=== PATIENT | male | born 1990 | race Caucasian/White ===

== ENCOUNTER 2017-05-07 01:46 | Emergency (ER) | payer SELFPAY ==
[2017-05-07] MEDS ORDERED: ACETAMINOPHEN 325 MG TABLET PO ONE (02:23)
[2017-05-07] MEDS ORDERED: HYDROMORPHONE HCL INJ/PF 2 MG/ML AMPULE IM ONE (03:47)
--- NOTE | 2017-05-07 04:01 | ER Document Report ---
ED General - General Chief Complaint: Low Back Pain Stated Complaint: LEFT LEG AND BACK PAIN Time Seen by Provider: 05/07/17 03:37 Notes: Patient is a 27-year-old male presents with complaint of pain and numbness into his left leg coming from his left back. He said the numbness goes to just above his left knee. It does not extend to the rest of his foot. No loss of bowel control. No urinary retention. No weakness into his feet. Patient has a history of a back surgery of his low back when he was 24. This was performed at [facility]. Fevers. No infections. He says he for stenosing pain when he tried to lift something heavy a few days ago. Then he had his girlfriend walk on his back. Pain is been worse since the numbness has developed. TRAVEL OUTSIDE OF THE [place] IN LAST 30 DAYS: No COUNTRY TRAVELED TO/FROM: [facility] - Related Data Allergies/Adverse Reactions: No Known Allergies Allergy (Unverified 05/07/17 02:34) Past Medical History - Social History Smoking Status: Never Smoker Frequency of alcohol use: None Drug Abuse: None Family History: Reviewed & Not Pertinent - Past Medical History Cardiac Medical History: Reports: Hx Hypertension Denies: Hx Coronary Artery Disease, Hx Heart Attack Pulmonary Medical History: Denies: Hx Asthma, Hx Bronchitis, Hx COPD, Hx Pneumonia Neurological Medical History: Denies: Hx Cerebrovascular Accident, Hx Seizures Endocrine Medical History: Denies: Hx Diabetes Mellitus Type 1, Hx Diabetes Mellitus Type 2 Musculoskeltal Medical History: Reports Hx Arthritis Psychiatric Medical History: Reports: Hx Attention Deficit Hyperactivity Disorder, Hx Depression, Hx Schizophrenia Past Surgical History: Reports: Hx Orthopedic Surgery - back. Denies: Hx Pacemaker - Immunizations Hx Diphtheria, Pertussis, Tetanus Vaccination: Yes Review of Systems - Review of Systems Notes: My Normal Review Basic REVIEW OF SYSTEMS: CONSTITUTIONAL : Denies fever, chills, or sweats. Denies recent illness. EENT: Denies eye, ear, throat, or mouth pain or symptoms. Denies nasal or sinus congestion. GASTROINTESTINAL: Denies abdominal pain. Denies nausea, vomiting, or diarrhea. GENITOURINARY: Denies difficulty urinating, painful urination, burning, frequency, or blood in urine. MUSCULOSKELETAL: Back pain SKIN: Denies rash or skin lesions. HEMATOLOGIC : Denies easy bruising or bleeding. LYMPHATIC: Denies swollen, enlarged glands. NEUROLOGICAL: Denies altered mental status or loss of consciousness. Denies headache. Denies weakness or paralysis or loss of use of either side. Denies problems with gait or speech. Numbness in left thigh. ALL OTHER SYSTEMS REVIEWED AND NEGATIVE. Physical Exam - Vital signs Vitals: Temp Pulse Resp BP Pulse Ox 98.2 F 88 20 146/90 H 98 05/07/17 01:53 05/07/17 01:53 05/07/17 01:53 05/07/17 01:53 05/07/17 01:53 - Notes Notes: General Appearance: Well nourished, alert, cooperative, no acute distress, mild obvious discomfort. Vitals: reviewed, See vital signs table. Eyes: PERRL, EOMI, Conjuctiva clear Back: Some midline lumbar spine tenderness to palpation. No stepoffs or deformities. Extremities: strength 5/5 in all extremities, good pulses in all extremities, no swelling or tenderness in the extremities, no edema. Skin: warm, dry, appropriate color, no rash Neuro: speech clear, oriented x 3, normal affect, responds appropriately to questions. Good strength with plantar dorsiflexion against resistance. Normal patella and Achilles reflexes. Good distal sensation left lower extremity. Mild pain with leg raise. Course - Re-evaluation Re-evalutation: 05/07/17 07:08 CT scans results recommends MRI. I do not suspect the patient is cauda equina syndrome however we will continue with MRI. Patient will be given results of his MRI and most likely will be able to follow-up with his previous back surgeon. There are MRI shows anything to think acutely surgical we will contact the appropriate consultants. Dictation of this chart was performed using voice recognition software; therefore, there may be some unintended grammatical errors. - Vital Signs Vital signs: Temp Pulse Resp BP Pulse Ox 98.2 F 88 20 146/90 H 98 05/07/17 01:53 05/07/17 01:53 05/07/17 01:53 05/07/17 01:53 05/07/17 01:53 Discharge - Discharge Clinical Impression: Back pain Qualifiers: Back pain location: low back pain Chronicity: chronic Back pain laterality: left Sciatica presence: with sciatica Sciatica laterality: sciatica of left side Qualified Code(s): M54.42 - Lumbago with sciatica, left side Condition: Good Additional Instructions: PLease take your MRI results to [facility] [place] to see your doctor. PLease follow up with them for further treatment options. PLease return to the ER if you have loss of bowel control, urinary retention, increasing leg weakness, or if you have further concerns. Please avoid lifting heavy objects. Prescriptions: Prednisone 10 mg PO ASDIR #42 tablet Forms: Return to Work
--- NOTE | 2017-05-07 04:37 | RADIOLOGY REPORT (SQ) ---
EXAM DESCRIPTION: CT LUMBAR SPINE WITHOUT CLINICAL HISTORY: back pain. COMPARISON: None available TECHNIQUE: Axial CT of the lumbar spine obtained without contrast. FINDINGS: Alignment of the lumbar spine is maintained without evidence of subluxation. No fracture identified. Vertebral body height preserved. Prevertebral soft tissues are unremarkable. Intervertebral disc height preserved at L1/2, L2/3, and L3/4 without significant abnormality. L4/5: Mild loss of disc height with broad-based central disc protrusion which likely effaces the thecal sac. No definite neural foraminal narrowing. L5/S1: Minimal broad-based posterior disc bulge. Mild loss of disc height. No abnormalities of the visualized abdominal soft tissues. No fracture of the visualized ribs. DLP: 1245.53 mGy-cm IMPRESSION: 1. No acute fracture or subluxation of the lumbar spine. 2. Degenerative change of the lumbar spine, most severe at L4/5 where there appears to be a broad-based central disc protrusion. Correlation with MRI would be helpful for more definitive characterization This exam was performed according to our departmental dose-optimization program, which includes automated exposure control, adjustment of the mA and/or kV according to patient size and/or use of iterative reconstruction technique.
--- NOTE | 2017-05-07 09:38 | RADIOLOGY REPORT (SQ) ---
EXAM DESCRIPTION: MRI LUMBAR SPINE WITHOUT COMPLETED DATE/TIME: 05/07/2017 9:23 am REASON FOR STUDY: back pain, findings on CT scan COMPARISON: CT of the lumbar spine dated 05/07/2017 TECHNIQUE: Sagittal and Axial imaging includes T1, T2, STIR and gradient echo sequences. Coronal T2/ HASTE imaging. LIMITATIONS: None. FINDINGS: VISUALIZED UPPER ABDOMEN: Limited evaluation. No acute or suspicious findings suggested. SEGMENTATION: No transitional anatomy. The lowest well-developed disc space is labeled L5-S1. ALIGNMENT: Anatomic. VERTEBRAE: Intact. BONE MARROW: Normal. No marrow replacement or reactive changes. DISC SIGNAL: There is some decrease in each of the lumbar disc space heights with some loss of the no rmal signal intensity at the L4-L5 level consistent with disc degeneration. POSTERIOR ELEMENTS: Generally intact. No pars defect evident. HARDWARE: None in the spine. CORD AND CONUS: Normal in size and signal intensity. Conus at the appropriate level. SOFT TISSUES: No aortic aneurysm seen. No bulky retroperitoneal adenopathy or mass. No paraspinal mas s or fluid. L1-L2: No significant spinal stenosis or exit foraminal stenosis. L2-L3: No significant spinal stenosis or exit foraminal stenosis. L3-L4: There is a central broad-based disc protrusion with impingement on the anterior thecal sac in conjunction with posterior ligamentous hypertrophy and for set arthropathy there is severe spinal darvin nosis without significant exit foraminal stenosis. L4-L5: Disc bulging is identified with a central convex component consistent with a broad base disc p rotrusion. There is impingement on the anterior thecal sac and in conjunction with posterior ligamen tous hypertrophy and for set arthropathy there is moderate spinal stenosis without significant exit f oraminal stenosis. L5-S1: No significant spinal stenosis or exit foraminal stenosis. LOWER THORACIC: Incompletely imaged. No stenosis seen. SACRUM: Visualized upper sacrum intact. OTHER: No other significant findings. IMPRESSION: Disc protrusions are identified at the L3-L4 and L4-L5 disc space levels as noted above. Other findings as noted above TECHNICAL DOCUMENTATION: JOB ID: [id number] [employer]- All Rights Reserved
[2017-05-07 11:24] VITALS: BP 154/85
== END 2017-05-07 11:24 ==
LOC: ER 01:46
DX: M54.42 Lumbago with sciatica, left side (principal); M79.605 Pain in left leg; M54.5 Low back pain; M54.9 Dorsalgia, unspecified; R20.0 Anesthesia of skin
CPT/HCPCS: 99283; 96372; 72148; 72131; J1170

== ENCOUNTER 2017-05-24 02:57 | Emergency (ER) | payer SELFPAY ==
[2017-05-24 03:02] VITALS: BP 143/86
[2017-05-24] MEDS ORDERED: DEXAMETHASONE SOD PHOS INJ 10 MG/1 ML VIAL IM ONE (04:08)
[2017-05-24] MEDS ORDERED: MORPHINE SULFATE 10 MG/ML INJ IM ONE (04:09)
--- NOTE | 2017-05-24 04:15 | ER Document Report ---
HPI - HPI Patient complains to provider of: Lower back pain, leg pain Pain Level: 5 Context: Patient is a 27-year-old male that comes emergency department for chief complaint of lower back pain extending around to the back of his right leg. He states that he was seen about 2 weeks ago, had similar symptoms in his left leg , states that he was treated with prednisone and he did have resolution of symptoms, states he also had an MRI which showed bulging disks in his lumbar spine. He states he had back surgery when he was 24 years old after an injury, states he was taking bupenorphrine but he had no improvement. He denies numbness , incontinence, fever, IV drug abuse. Past Medical History - General Information source: Patient - Social History Smoking Status: Never Smoker Frequency of alcohol use: None Drug Abuse: None Lives with: Family Family History: Reviewed & Not Pertinent - Past Medical History Cardiac Medical History: Reports: Hx Hypertension Denies: Hx Coronary Artery Disease, Hx Heart Attack Pulmonary Medical History: Denies: Hx Asthma, Hx Bronchitis, Hx COPD, Hx Pneumonia Neurological Medical History: Denies: Hx Cerebrovascular Accident, Hx Seizures Endocrine Medical History: Denies: Hx Diabetes Mellitus Type 1, Hx Diabetes Mellitus Type 2 Renal/ Medical History: Denies: Hx Peritoneal Dialysis Musculoskeltal Medical History: Reports Hx Arthritis Psychiatric Medical History: Reports: Hx Attention Deficit Hyperactivity Disorder, Hx Depression, Hx Schizophrenia Past Surgical History: Reports: Hx Orthopedic Surgery - back. Denies: Hx Pacemaker - Immunizations Hx Diphtheria, Pertussis, Tetanus Vaccination: Yes Vertical Provider Document - CONSTITUTIONAL General Appearance: Mild Distress - patient appears uncomfortable - INFECTION CONTROL TRAVEL OUTSIDE OF THE [place] IN LAST 30 DAYS: No COUNTRY TRAVELED TO/FROM: [facility] - [facility] HEENT: Atraumatic, Normocephalic - NECK Neck: Normal Inspection - RESPIRATORY Respiratory: Breath Sounds Normal, No Respiratory Distress O2 Sat by Pulse Oximetry: 98 - CARDIOVASCULAR Cardiovascular: Regular Rate, Regular Rhythm - GI/ABDOMEN Gastrointestinal: Abdomen Soft, Abdomen Non-Tender - BACK Back: negative: Normal Inspection - Patient has tenderness in the right paraspinal muscles extending towards the gluteus. No midline tenderness. No saddle anesthesia. Full range of motion of upper and lower extremities, positive straight leg raise on the left side, patient ambulates with a slight limp. Normal distal neurovascular exam. - NEURO Level of Consciousness: Awake, Alert, Appropriate Motor/Sensory: No Motor Deficit, No Sensory Deficit - DERM Integumentary: Warm, Dry, No Rash Course - Re-evaluation Re-evalutation: Patient states he is waiting in the local office of the [facility]. Patient is very forthcoming about his history and medications. He states that he declined pain medicine last time but he is requesting some this time. He does appear uncomfortable and walks with a limp although he has no concerning deficits or red flag symptoms. MRI reviewed and found to be what patient described. Patient provided with medication here and for home, referred to pain management, provided with copies of his reports, patient states gratefulness. - Vital Signs Vital signs: Temp Pulse Resp BP Pulse Ox 97.8 F 98 18 143/86 H 98 05/24/17 02:58 05/24/17 02:58 05/24/17 02:58 05/24/17 02:58 05/24/17 02:58 Discharge - Discharge Clinical Impression: Lower back pain Qualifiers: Chronicity: acute Back pain laterality: right Sciatica presence: with sciatica Sciatica laterality: sciatica of right side Qualified Code(s): M54.41 - Lumbago with sciatica, right side Condition: Stable Disposition: HOME, SELF-CARE Instructions: Oral Narcotic Medication ([facility]) Additional Instructions: Please follow-up with your spinal surgeon as planned. Take your MRI disc and report with you. Take prescribed medications, apply heat to your lower back, avoid lifting/ twisting especially until symptoms resolve. Consider following up with the pain management referral because of your chronic pain. Return the emergency department for any concerning or worsening symptoms including numbness, loss of bladder or bowel control, fever, or any other concerning symptoms. Prescriptions: Acetaminophen with Codeine [Tylenol #3 Tablet] 1 each PO Q6HP PRN #40 tablet PRN Reason: Forms: Return to Work Referrals: [facility] [Provider Group] - Follow up as needed
== END 2017-05-24 04:42 | disposition home or self-care (01) ==
LOC: ER 02:57
DX: M51.16 Intervertebral disc disorders with radiculopathy, lumbar region (principal); I10 Essential (primary) hypertension; Z87.828 Personal history of other (healed) physical injury and trauma; Z98.890 Other specified postprocedural states
CPT/HCPCS: 99283; 96372; J2270; J1100

== ENCOUNTER 2017-08-24 18:54 | Emergency (ER) | payer SELFPAY ==
[2017-08-24] MEDS ORDERED: ONDANSETRON HCL INJ/PF 4 MG/2 ML SDV IV ONE (19:33)
[2017-08-24] MEDS ORDERED: NORMAL SALINE 1000 ML 1,000 ML IV ONE ×2 (19:33→20:16)
--- NOTE | 2017-08-24 19:36 | ER Document Report ---
HPI - HPI Patient complains to provider of: Flu symptoms Onset: Yesterday Onset/Duration: Gradual Quality of pain: Achy Pain Level: 3 Context: Patient presents complaining of flulike symptoms. Patient complains of intermittent sweats and chills and feeling generalized weakness. Patient does complain of some nausea. Patient denies any fever or cough. Patient denies any vomiting or diarrhea. Patient does report recent sick contacts. Patient states he had an episode of muscle cramping to the right pectoralis muscle and right thigh this afternoon. Patient denies any chest pain or dyspnea. Associated Symptoms: Body/muscle aches, Chills, Nausea. denies: Nonproductive cough, Productive cough, Diarrhea, Fever, Vomiting, Shortness of breath Exacerbated by: Denies Relieved by: Denies Similar symptoms previously: No Recently seen / treated by doctor: No - ROS ROS below otherwise negative: Yes Systems Reviewed and Negative: Yes All other systems reviewed and negative - CONSTITUTIONAL Constitutional: REPORTS: Chills. DENIES: Fever - NEURO Neurology: REPORTS: Weakness. DENIES: Headache - RESPIRATORY Respiratory: DENIES: Trouble Breathing, Coughing - GASTROINTESTINAL Gastrointestinal: REPORTS: Nausea. DENIES: Abdominal Pain, Patient vomiting, Diarrhea - MUSCULOSKELETAL Musculoskeletal: DENIES: Back Pain, Neck Pain - DERM Skin Color: Normal <ROSSANA DOS SANTOS - Last Filed: 08/25/17 09:24> Past Medical History - General Information source: Patient - Social History Smoking Status: Current Every Day Smoker Frequency of alcohol use: None Drug Abuse: None Occupation: cement worker Lives with: Family Family History: Reviewed & Not Pertinent - Past Medical History Cardiac Medical History: Reports: Hx Hypertension Denies: Hx Coronary Artery Disease, Hx Heart Attack Pulmonary Medical History: Denies: Hx Asthma, Hx Bronchitis, Hx COPD, Hx Pneumonia Neurological Medical History: Denies: Hx Cerebrovascular Accident, Hx Seizures Endocrine Medical History: Denies: Hx Diabetes Mellitus Type 1, Hx Diabetes Mellitus Type 2 Renal/ Medical History: Denies: Hx Peritoneal Dialysis Musculoskeltal Medical History: Reports Hx Arthritis Psychiatric Medical History: Reports: Hx Attention Deficit Hyperactivity Disorder, Hx Depression, Hx Schizophrenia Past Surgical History: Reports: Hx Orthopedic Surgery - back. Denies: Hx Pacemaker - Immunizations Hx Diphtheria, Pertussis, Tetanus Vaccination: Yes <ROSSANA DOS SANTOS - Last Filed: 08/25/17 09:24> Vertical Provider Document - CONSTITUTIONAL Agree With Documented VS: Yes Exam Limitations: No Limitations General Appearance: No Apparent Distress - INFECTION CONTROL TRAVEL OUTSIDE OF THE [place] IN LAST 30 DAYS: No COUNTRY TRAVELED TO/FROM: [place] - HEENT HEENT: Atraumatic, Normal ENT Exam, Normocephalic - NECK Neck: Normal Inspection, Supple. negative: Lymphadenopathy-Left, Lymphadenopathy-Right - RESPIRATORY Respiratory: Breath Sounds Normal, No Respiratory Distress, Chest Non-Tender O2 Sat by Pulse Oximetry: 96 - CARDIOVASCULAR Cardiovascular: Regular Rhythm, No Murmur, Tachycardia - GI/ABDOMEN Gastrointestinal: Abdomen Soft, Abdomen Non-Tender, No Organomegaly, Normal Bowel Sounds - BACK Back: Normal Inspection. negative: CVA Tenderness-Right, CVA Tenderness-Left - MUSCULOSKELETAL/EXTREMETIES Musculoskeletal/Extremeties: KATI ROE - NEURO Level of Consciousness: Awake, Alert, Appropriate Motor/Sensory: No Motor Deficit - DERM Integumentary: Warm - Patient diaphoretic <ROSSANA DOS SANTOS - Last Filed: 08/25/17 09:24> Course - Re-evaluation Re-evalutation: 08/24/17 22:16 Discussed labs with patient and written report of labs given to patient. Patient states he is feeling much better. He denies nausea, abdominal pain, sweating, or dizziness. He states he was able to drink the whole Gatorade with no difficulty. He states he has been up to the bathroom several times. He was given a prescription for antinausea medicine instructed to follow-up with his primary doctor tomorrow. Patient verbalized understanding of these instructions. - Vital Signs Vital signs: Temp Pulse Resp BP Pulse Ox 98.0 F 90 17 144/89 H 97 08/24/17 21:50 08/24/17 21:50 08/24/17 21:50 08/24/17 21:50 08/24/17 21:50 - Laboratory Result Diagrams: 08/24/17 20:13 08/24/17 20:13 Laboratory results interpreted by me: 08/24/17 08/24/17 08/24/17 19:50 20:13 20:13 WBC 15.5 H RBC 5.58 H Absolute Neutrophils 11.3 H Absolute Monocytes 1.6 H Calcium 10.9 H Direct Bilirubin 0.5 H Total Protein 8.3 H Urine Protein 100 H Urine Ketones TRACE H Urine Bilirubin MODERATE H Urine Urobilinogen 4.0 H Urine Ascorbic Acid 40 H <FELICIA SEBASTIAN - Last Filed: 08/24/17 22:11> - Re-evaluation Re-evalutation: 08/24/17 19:[address] Paulson guarding patient's diagnostic evaluation. Agrees with plan to order basic labs and advises adding on the magnesium as well. 08/24/17 20:41 Report and handoff given to Mala Sebastian PIPELINE OPERATOR - Vital Signs Vital signs: Temp Pulse Resp BP Pulse Ox 98.5 F 122 H 20 154/88 H 96 08/24/17 19:09 08/24/17 19:09 08/24/17 19:09 08/24/17 19:09 08/24/17 19:09 - Laboratory Result Diagrams: 08/24/17 20:13 08/24/17 20:13 <ROSSANA DOS SANTOS - Last Filed: 08/25/17 09:24> Discharge <FELICIA SEBASTIAN - Last Filed: 08/24/17 22:11> <ROSSANA DOS SANTOS - Last Filed: 08/25/17 09:24> - Discharge Clinical Impression: Flu-like symptoms, Dehydration Condition: Stable Disposition: HOME, SELF-CARE Additional Instructions: Viral Syndrome The physician has diagnosed a viral infection. Viruses not only cause "colds," but can cause many different symptoms including generalized aching, fever, headache, cough, diarrhea, nausea, vomiting, and fatigue. The treatment, for the most part, is simply relief of symptoms. This means that antibiotics are usually not given. Rest, fluids, pain medications and, occasionally, medication for the specific symptoms that are most bothersome will be prescribed. Use good handwashing to avoid passing the virus to others. Shared toys should be cleaned with disinfectant. Clean the toilets, sinks, and counter surfaces in bathrooms. Launder clothing in hot water. Contact the physician if you develop any new or unusual symptoms such as severe headache, stiff neck, high fever, chest pain, productive cough, or shortness of breath. You should be rechecked if you don't see marked improvement within seven to 10 days. Dehydration Dehydration can result from vomiting or diarrhea, fever, or decreased intake of fluids. If severe, hospitalization and intravenous fluids may be required. Most cases are treated at home with fluids by mouth. For the next 24 hours, drink lots of clear fluids. In mild cases, this can be soda pop or sports drinks. For more severe dehydration, the doctor may recommend special fluids such as Pedialyte or Lytren. Try to get three liters ( 3 quarts) of fluid per day. If vomiting occurs, continue to drink the fluids frequently (every 15 to 20 minutes), but in small amounts (one or two ounces). Depending on the type of dehydration, the doctor may prescribe antinausea medicine or potassium replacements. Call the doctor or return for re-examination if you become progressively weak, vomit repeatedly, or have other new symptoms. Nausea or Vomiting, Nonspecific Vomiting (or nausea without vomiting) can be caused by many different problems. Of course, it can mean that something's wrong with the stomach, such as "stomach flu," ulcers, or inflammation. But it can also be a symptom of a problem that has nothing to do with the stomach or intestines. Vomiting is common with severe headaches, earaches, and tonsillitis. We see it with pneumonia or heart attacks. Drugs can cause nausea. Many abdominal problems cause vomiting; for example, gallstones, kidney stones, pancreatitis, and intestinal obstruction (blocked bowels). In most cases, curing the vomiting depends on fixing the problem that caused it. For temporary relief, we may use an anti-nausea medicine. For home use, we can prescribe suppositories, chewable pills, pills that dissolve in the mouth, or liquid anti-nausea drugs. If the vomiting seems to be caused by a problem in the stomach, acid-suppressing drugs may be prescribed as well. It's important to avoid dehydration. Sip clear liquids. Take increasing amounts of fluid over the first 24 hours. Then start small amounts of bland foods (such as dry toast, applesauce, mashed potato). Avoid aspirin, tobacco, and alcohol. Gradually resume your usual diet. If the vomiting worsens, if the problem that's making you vomit worsens, or if there's evidence of bleeding in the stomach (such as black, tarry stool, bloody or black vomit, or lightheadedness), you should return immediately. Call your doctor if you aren't improved in 24 to 36 hours. Antinausea Medication You have been given a medication to suppress nausea and vomiting. This type of medication can be given as a shot, pill, or suppository. It will usually last for many hours. Pills and shots usually last six to eight hours, suppositories last about 12 hours. For the typical illness, only one or two doses of the medication may be necessary. Mild lightheadedness may occur. This type of medicine can cause drowsiness. Do not drive or operate dangerous machinery while under its influence. Do not mix with alcohol. See your doctor at once if you have muscle spasms or tightness, or uncontrollable motions (particularly of the neck, mouth, or jaw). Persistent vomiting or severe lightheadedness should also be evaluated by the physician. Intravenous (IV) Fluids As part of your care today, you received intravenous (IV) fluids. IV fluids are administered to patients who are dehydrated or to those who have certain chemical (electrolyte) abnormalities that need correcting. FOLLOW-UP CARE: If you have been referred to a physician for follow-up care, call the physician s office for an appointment as you were instructed or within the next two days. If you experience worsening or a significant change in your symptoms, notify the physician immediately or return to the Emergency Department at any time for re-evaluation. Prescriptions: Ondansetron [Zofran Odt 4 mg Tablet] 1 tab PO Q6H #15 tab.rapdis Forms: Elevated Blood Pressure, Smoking Cessation Education, Return to Work Referrals: CULLEN VALERIO MD [Primary Care Provider] - Follow up tomorrow
[2017-08-24 20:09] LABS: APPEARANCE,URINE SLIGHTLY-CLOUDY; BILIRUBIN,URINE MODERATE (NEGATIVE); CALCIUM OXALATE CRYSTALS,URINE RARE /HPF; COLOR,URINE AMBER; GLUCOSE, URINE NEGATIVE (NEGATIVE); KETONES,URINE TRACE mg/dL (NEGATIVE); LEUKOCYTE ESTERASE,URINE NEGATIVE (NEGATIVE); NITRITE,URINE NEGATIVE (NEGATIVE); PROTEIN,URINE 100 mg/dL (NEGATIVE); URINE SPECIFIC GRAVITY 1.059
[2017-08-24 20:31] LABS: ABSOLUTE BASOPHILS # (AUTO) 0.1 10^3/uL (0.0-0.2); ABSOLUTE EOSINOPHILS # (AUTO) 0.2 10^3/uL (0.0-0.6); ABSOLUTE LYMPHOCYTES (AUTO) 2.3 10^3/uL (0.5-4.7); ABSOLUTE MONOCYTES (AUTO) 1.6 10^3/uL (0.1-1.4); ABSOLUTE NEUT (AUTO) 11.3 10^3/uL (1.7-8.2); BASOPHILS % (AUTO) 0.7 % (0-2); HEMATOCRIT 47.9 % (37.9-51.0); HEMOGLOBIN 16.2 g/dL (13.5-17.0); LYMPHOCYTES % (AUTO) 14.8 % (13-45); MEAN CORPUSCULAR HEMOGLOBIN 29.1 pg (27.0-33.4); MEAN CORPUSCULAR HGB CONC 33.9 g/dL (32.0-36.0); MEAN CORPUSCULAR VOLUME 86 fl (80-97); MONOCYTES % (AUTO) 10.2 % (3-13); PLATELET COUNT 334 10^3/uL (150-450); RED BLOOD COUNT 5.58 10^6/uL (4.35-5.55); RED CELL DISTRIBUTION WIDTH 12.8 % (11.5-14.0); SEGMENTED NEUTROPHILS % (AUTO) 73.3 % (42-78); TOTAL CELLS COUNTED % (AUTO) 100 %; WHITE BLOOD COUNT 15.5 10^3/uL (4.0-10.5)
[2017-08-24 20:51] LABS: ALANINE AMINOTRANSFERASE 61 U/L (21-72); ALBUMIN 4.6 g/dL (3.5-5.0); ALKALINE PHOSPHATASE 106 U/L (38-126); ANION GAP 14 (5-19); ASPARTATE AMINO TRANSFERASE 36 U/L (17-59); BILIRUBIN,DIRECT 0.5 mg/dL (0.0-0.4); BILIRUBIN,TOTAL 0.6 mg/dL (0.2-1.3); BLOOD UREA NITROGEN 15 mg/dL (7-20); CALCIUM 10.9 mg/dL (8.4-10.2); CARBON DIOXIDE 27 mmol/L (22-30); CHLORIDE 102 mmol/L (98-107); CREATINE KINASE 129 U/L (55-170); GLUCOSE 97 mg/dL (75-110); POTASSIUM 4.5 mmol/L (3.6-5.0); SODIUM 142.8 mmol/L (137-145); TOTAL PROTEIN 8.3 g/dL (6.3-8.2)
[2017-08-24 21:52] VITALS: BP 144/89
--- NOTE | 2017-08-24 22:13 | EKG REPORT ---
SEVERITY:- OTHERWISE NORMAL ECG - SINUS TACHYCARDIA : Confirmed by: Jamie Steve 24-Aug-2017 22:13:09
== END 2017-08-24 22:15 | disposition home or self-care (01) ==
LOC: ER 18:54
DX: E86.0 Dehydration (principal); R61 Generalized hyperhidrosis; F17.200 Nicotine dependence, unspecified, uncomplicated; I10 Essential (primary) hypertension
CPT/HCPCS: 93005; 99284; 96361; 96374; 36415; 82550; 83735; 84443; 85025; 80053; 81001; 93010; J2405; J7030

== ENCOUNTER 2017-09-08 18:05 | Emergency (ER) | payer SELFPAY ==
[2017-09-08] MEDS ORDERED: DEXAMETHASONE SOD PHOS INJ 10 MG/1 ML VIAL IM ONE (19:02)
[2017-09-08] MEDS ORDERED: KETOROLAC TROMETHAMINE INJ/PF 30 MG/1 ML SDV IM ONE (19:02)
--- NOTE | 2017-09-08 19:03 | ER Document Report ---
HPI - HPI Pain Level: 5 Notes: Patient is a 27-year-old male with a history of hypertension who presents to the ED complaining of acute on chronic left leg tingling with continued low back pain. Patient states that since he started his new job he has been leaning over the sink and has had increased pain to his lower back and increased tingling into his left leg down to his knee. Patient has not been being seen by anybody for his chronic issues. Patient states that he has had surgery to his back in the past with an MRI that showed bulging disks as well. Patient states that he is eating and drinking without difficulties. He is urinating normally and having normal bowel movements. Patient does admit to smoking but denies IV drug use. Denies any previous history of spinal abscess or other immunocompromised conditions. Patient states that he is ambulatory without any discomfort as well. Flexion makes his pain worse. No other concerns or complaints at this time. Denies any headache, fever, neck pain, URI , sore throat, chest pain, palpitations, syncope, cough, shortness of breath, wheeze, dyspnea, abdominal pain, nausea/vomiting/diarrhea, urinary retention, dysuria, hematuria, loss of control of bowel or bladder, numbness/tingling, saddle anesthesia, muscle paralysis/weakness, or rash. - ROS Systems Reviewed and Negative: Yes All other systems reviewed and negative - MUSCULOSKELETAL Musculoskeletal: REPORTS: Extremity pain Past Medical History - Social History Smoking Status: Current Every Day Smoker Chew tobacco use (# tins/day): No Frequency of alcohol use: None Drug Abuse: None Family History: Reviewed & Not Pertinent Patient has suicidal ideation: No Patient has homicidal ideation: No - Past Medical History Cardiac Medical History: Reports: Hx Hypertension Denies: Hx Coronary Artery Disease, Hx Heart Attack Pulmonary Medical History: Denies: Hx Asthma, Hx Bronchitis, Hx COPD, Hx Pneumonia Neurological Medical History: Denies: Hx Cerebrovascular Accident, Hx Seizures Endocrine Medical History: Denies: Hx Diabetes Mellitus Type 1, Hx Diabetes Mellitus Type 2 Renal/ Medical History: Denies: Hx Peritoneal Dialysis Musculoskeltal Medical History: Reports Hx Arthritis Psychiatric Medical History: Reports: Hx Attention Deficit Hyperactivity Disorder, Hx Depression - anxiety, Hx Schizophrenia Past Surgical History: Reports: Hx Orthopedic Surgery - back. Denies: Hx Pacemaker - Immunizations Hx Diphtheria, Pertussis, Tetanus Vaccination: Yes Vertical Provider Document - CONSTITUTIONAL Agree With Documented VS: Yes Notes: PHYSICAL EXAMINATION: GENERAL: Well-appearing, well-nourished and in no acute distress. LUNGS: Breath sounds clear to auscultation bilaterally and equal. No wheezes rales or rhonchi. HEART: Regular rate and rhythm without murmurs, rubs, gallops. ABDOMEN: Soft, nontender, nondistended abdomen. No guarding, no rebound. No masses appreciated. Normal bowel sounds present. No CVA tenderness bilaterally. No pulsatile mass Musculoskeletal: LE's b/l: FROM to passive/active. Strength 5+/5. No deficits noted. No bony tenderness of extremities. Back: FROM to passive/active. Strength 5+/5. No vertebral point tenderness, stepoffs, or deformities. No other bony tenderness, erythema, swelling, or ecchymosis. SLR negative b/l. + mild tenderness to the L-paraspinal mm left. Mild spasming. No SI jt tenderness. No foot drop Extremities: No cyanosis, clubbing, or edema b/l. Peripheral pulses 2+. Capillary refill less than 2 seconds. NEUROLOGICAL: Normal speech, normal gait. Normal sensory, motor exams. Reflexes 2+ b/l. PSYCH: Normal mood, normal affect. SKIN: Warm, Dry, normal turgor, no rashes or lesions noted. - INFECTION CONTROL TRAVEL OUTSIDE OF THE [place] IN LAST 30 DAYS: No COUNTRY TRAVELED TO/FROM: [facility] Course - Re-evaluation Re-evalutation: 09/08/17 19:07 Patient is an afebrile, well-hydrated, 27-year-old male who presents to the ED with acute on chronic low back pain with radiculitis to left lower extremity approximately down the L4 dermatome. Vitals are acceptable. PE is otherwise unremarkable for any focal neurological deficits otherwise. Patient to be given Toradol and Decadron today. No red flag signs or symptoms noted. No labs or imaging warranted at this time based on H&P. Low suspicion for any meningitis, fracture, expanding/ruptured AAA, cauda equina syndrome, epidural mass lesion/abscess, herniated disc causing severe spinal stenosis, or other systemic infection at this time. Patient is aware that his condition can change from initial presentation and that he needs monitor symptoms closely for any acute changes. I will be sending him home with a prescription for naproxen and baclofen. Conservative measures otherwise for symptoms. Recheck with your PCM in 3-5 days. Consider consult with orthopedic/physical therapy. Return to the ED with any worsening/concerning symptoms otherwise as reviewed discharge. Patient is in agreement. - Vital Signs Vital signs: Temp Pulse Resp BP Pulse Ox 98.1 F 113 H 18 170/93 H 95 09/08/17 18:20 09/08/17 18:20 09/08/17 18:20 09/08/17 18:20 09/08/17 18:20 Discharge - Discharge Clinical Impression: Low back pain Qualifiers: Chronicity: acute Back pain laterality: left Sciatica presence: with sciatica Sciatica laterality: sciatica of left side Qualified Code(s): M54.42 - Lumbago with sciatica, left side Condition: Stable Disposition: HOME, SELF-CARE Instructions: Low Back Pain ([facility]), Stretching Exercises for the Back ([facility]) Additional Instructions: Rest, Ice Tylenol/ibuprofen as needed Light stretches daily Strength exercises as able Moist heat and massage may help F/u with your PCP in 3-5 days for a recheck Consider consult(s) with Orthopedics/physical therapy for ongoing/worsening symptoms Return to the ED with any worsening symptoms and/or development of fever, headache, chest pain, palpitations, syncope, shortness of breath, trouble breathing, abdominal pain, n/v/d, blood in stool/urine, loss of control of bowel /bladder, urinary retention, muscle weakness/paralysis, saddle anesthesia, numbness/tingling, or other worsening symptoms that are concerning to you. Prescriptions: Baclofen [Baclofen 10 mg Tablet] 5 - 10 mg PO BID PRN #10 tablet PRN Reason: Naproxen 500 mg PO BID PRN #30 tablet PRN Reason: Forms: Elevated Blood Pressure, Smoking Cessation Education Referrals: [facility] [Provider Group] - Follow up as needed
[2017-09-08 19:28] VITALS: BP 158/96
== END 2017-09-08 19:25 | disposition home or self-care (01) ==
LOC: ER 18:05
DX: M54.42 Lumbago with sciatica, left side (principal); R20.2 Paresthesia of skin; F17.200 Nicotine dependence, unspecified, uncomplicated; I10 Essential (primary) hypertension
CPT/HCPCS: 99283; 96372; J1885; J1100

== ENCOUNTER 2018-09-21 19:12 | Emergency (ER) | payer SELFPAY ==
[2018-09-21 19:25] VITALS: BP 166/100
[2018-09-21] MEDS ORDERED: KETOROLAC TROMETHAMINE 60 MG/2 ML SDV IM ONE (20:00)
--- NOTE | 2018-09-21 20:44 | RADIOLOGY REPORT (SQ) ---
EXAM DESCRIPTION: XR SHOULDER 2 OR MORE VIEWS COMPLETED DATE/TME: 09/21/2018 20:00 CLINICAL HISTORY: 28 years, Male, fall, L shoulder pain COMPARISON: None. NUMBER OF VIEWS: Three TECHNIQUE: Internal/external rotated and transscapular Y projections of the left shoulder were obtained. LIMITATIONS: None. FINDINGS: Visualized osseous structures are normal in appearance. Joint spaces are well-maintained. No acute fracture or dislocation is evident. IMPRESSION: No acute osseous anomaly. copyright 2010 [employer]- All Rights Reserved
--- NOTE | 2018-09-21 20:48 | RADIOLOGY REPORT (SQ) ---
EXAM DESCRIPTION: XR LUMBAR SPINE ANTEROPOSTERIOR, LATERAL, AND OBLIQUES COMPLETED DATE/TME: 09/21/2018 20:00 CLINICAL HISTORY: 28 years, Male, fall, R lower back pain COMPARISON: CT of the lumbar spine performed on 05/07/2017 NUMBER OF VIEWS: Five TECHNIQUE: Frontal, lateral, and oblique radiographs of the lumbar spine were obtained LIMITATIONS: None. FINDINGS: Five nonrib-bearing lumbar type vertebral bodies are evident. L1-L5 are in alignment. Vertebral body and intervertebral disc heights are well-maintained. No acute fracture or malalignment is appreciated. IMPRESSION: No osseous anomaly. copyright 2010 [employer]- All Rights Reserved
[2018-09-21] MEDS ORDERED: LIDOCAINE 5% (700 MG) TRANSDERMAL ADH..PATCH TP ONE (20:57)
--- NOTE | 2018-09-21 21:12 | ER Document Report ---
HPI - HPI Patient complains to provider of: Fall Time Seen by Provider: 09/21/18 19:47 Onset: Other - 5 days Onset/Duration: Persistent Quality of pain: Achy, Sharp Pain Level: 5 Context: Patient states that he fell in the shower 5 days ago landing on his right lateral side and jarring his left shoulder. Patient complains of right lower back pain that radiates down the posterior aspect of his right thigh. Patient complains of left shoulder joint pain. Patient denies any head injury or loss of consciousness. Patient does report a history of chronic low back pain and reports previous surgery to his lower back about 4 years ago. Patient denies any urinary retention or incontinence. Patient denies any fever or history of IV drug use. Patient states he has had pain like this in the past to his lower back. Associated Symptoms: Other - Low back pain, left shoulder pain. denies: Fever Exacerbated by: Movement, Walking Relieved by: Denies Similar symptoms previously: Yes Recently seen / treated by doctor: No - ROS ROS below otherwise negative: Yes Systems Reviewed and Negative: Yes All other systems reviewed and negative - CONSTITUTIONAL Constitutional: DENIES: Fever, Chills - NEURO Neurology: DENIES: Headache, Weakness - GASTROINTESTINAL Gastrointestinal: DENIES: Nausea, Patient vomiting - URINARY Urinary: DENIES: Dysuria - MUSCULOSKELETAL Musculoskeletal: REPORTS: Extremity pain - L shoulder, Back Pain - DERM Skin Color: Normal Skin Problems: None Past Medical History - General Information source: Patient - Social History Smoking Status: Former Smoker Frequency of alcohol use: None Drug Abuse: None Occupation: [employer] Lives with: Family Family History: Reviewed & Not Pertinent Patient has suicidal ideation: No Patient has homicidal ideation: No - Past Medical History Cardiac Medical History: Reports: Hx Hypertension Renal/ Medical History: Denies: Hx Peritoneal Dialysis Musculoskeletal Medical History: Reports Hx Arthritis, Reports Other - Chronic back pain Psychiatric Medical History: Reports: Hx Attention Deficit Hyperactivity Disorder, Hx Depression - anxiety, Hx Schizophrenia Past Surgical History: Reports: Hx Orthopedic Surgery - back - Immunizations Hx Diphtheria, Pertussis, Tetanus Vaccination: Yes Vertical Provider Document - CONSTITUTIONAL Agree With Documented VS: Yes Exam Limitations: No Limitations General Appearance: WD/WN, No Apparent Distress Notes: PHYSICAL EXAMINATION: GENERAL: Well-appearing, well-nourished and in no acute distress. HEAD: Atraumatic, normocephalic. EYES: sclera clear, anicteric, conjunctiva are normal. ENT: nares patent, Moist mucous membranes. NECK: Normal range of motion, supple no lymphadenopathy LUNGS: respirations unlabored HEART: Regular rate and rhythm without murmurs EXTREMITIES: Left shoulder joint tenderness over anterior aspect of humeral head, no deformity no dislocation. Tenderness increases with left shoulder extension. no cyanosis. Gait normal, pt ambulates without difficulty BACK: Right lower lumbar paraspinal tenderness, no midline tenderness, no deformities or step-offs. No CVA tenderness. NEUROLOGICAL: Cranial nerves grossly intact. Normal speech, normal gait. No saddle anesthesia. No foot drop PSYCH: Normal mood, normal affect. SKIN: Warm, Dry, normal turgor, no rashes or lesions noted. - INFECTION CONTROL TRAVEL OUTSIDE OF THE [place] IN LAST 30 DAYS: No COUNTRY TRAVELED TO/FROM: [facility] Course - Re-evaluation Re-evalutation: 09/21/18 21:09 The patient presents with low back pain without signs of spinal cord compression, cauda equina syndrome, infection, aneurysm, or other serious etiology. The patient is neurologically intact. Given the extremely risk of these diagnoses further testing and evaluation for these possibilities does not appear to be indicated at this time. Patient has been instructed to return if the symptoms worsen or change in any way. Offered patient immobilization of the left shoulder joint, patient declines. Patient encouraged to follow-up with his orthopedic surgeon for recheck. Discussed worsening symptoms to follow-up emergently for. Patient states that he has had pain like this in the past and is requesting a prescription for steroids at this time. - Vital Signs Vital signs: Temp Pulse Resp BP Pulse Ox 98.6 F 94 16 166/100 H 97 09/21/18 19:24 09/21/18 19:24 09/21/18 19:24 09/21/18 19:24 09/21/18 19:24 - Diagnostic Test Radiology reviewed: Image reviewed, Reports reviewed Discharge - Discharge Clinical Impression: Fall Qualifiers: Encounter type: initial encounter Qualified Code(s): W19.XXXA - Unspecified fall, initial encounter Sprain of left shoulder Qualifiers: Encounter type: initial encounter Shoulder sprain type: unspecified sprain Qualified Code(s): S43.402A - Unspecified sprain of left shoulder joint, initial encounter Low back pain Qualifiers: Chronicity: unspecified Back pain laterality: right Sciatica presence: with sciatica Sciatica laterality: sciatica of right side Qualified Code(s): M54.41 - Lumbago with sciatica, right side Condition: Stable Disposition: HOME, SELF-CARE Instructions: Ice Packs ([facility]), Low Back Pain ([facility]), Sciatica ([facility]), Shoulder Injury ([facility]), Steroid Medication Additional Instructions: Return immediately for any new or worsening symptoms Followup with your primary care provider, call tomorrow to make a followup appointment Follow-up with your orthopedic surgeon for recheck Prescriptions: Lidocaine [Lidoderm 5% (700 mg) Transdermal Patch] 1 patch TP DAILY PRN #10 adh..patch PRN Reason: Prednisone [Deltasone 20 mg Tablet] 3 tab PO DAILY 5 Days tablet Forms: Return to Work Referrals: [facility] [Provider Group] - Follow up as needed [facility] [Provider Group] - Follow up as needed
== END 2018-09-21 21:43 | disposition home or self-care (01) ==
LOC: ER 19:12
DX: S43.402A Unspecified sprain of left shoulder joint, initial encounter (principal); M54.41 Lumbago with sciatica, right side; M25.512 Pain in left shoulder; M79.604 Pain in right leg; W18.2XXA Fall in (into) shower or empty bathtub, initial encounter; Z87.891 Personal history of nicotine dependence; I10 Essential (primary) hypertension
CPT/HCPCS: 99283; 96372; 72110; 73030; J1885

== ENCOUNTER 2019-04-20 21:36 | Emergency (ER) | payer SELFPAY ==
[2019-04-20] MEDS ORDERED: ASPIRIN 81 MG TABLET, CHEWABLE PO ONE (21:46)
--- NOTE | 2019-04-20 21:52 | ER Document Report ---
ED Medical Screen (RME) - General Chief Complaint: Shortness Of Breath Stated Complaint: DIFFICULTY BREATHING Time Seen by Provider: 04/20/19 21:45 Mode of Arrival: Ambulatory Information source: Patient Notes: 29-year-old male presented to ED for complaint of shortness of breath tightness and chest and diaphoresis consistently all week. He states when his chest feels more tight he feels like he is sweating worse. He does have a history of high blood pressure. He states he smokes about 1/2 pack a day he states he does drink alcohol or use any illicit drugs. Patient states he has had panic attacks before but not consistent like this week is been. He states he did have all of these symptoms when he had his panic attacks. He states he does not think he has had a EKG done in the past. Patient is alert oriented respirations regular nonlabored speaking in full sentences. He states that several nights this week he has woken up due to choking and feeling like there was something in the back of his throat. He states to night this week that he did actually wake up choking and he had thrown up on himself. I have greeted and performed a rapid initial assessment of this patient. A comprehensive ED assessment and evaluation of the patient, analysis of test results and completion of medical decision making process will be conducted by an additional ED providers. TRAVEL OUTSIDE OF THE [place] IN LAST 30 DAYS: No COUNTRY TRAVELED TO/FROM: [facility] - Related Data Allergies/Adverse Reactions: methylphenidate [From Ritalin] Allergy (Verified 12/29/18 17:31) Past Medical History - Past Medical History Cardiac Medical History: Reports: Hx Hypertension Denies: Hx Coronary Artery Disease, Hx Heart Attack Pulmonary Medical History: Denies: Hx Asthma, Hx Bronchitis, Hx COPD, Hx Pneumonia Neurological Medical History: Denies: Hx Cerebrovascular Accident, Hx Seizures Endocrine Medical History: Denies: Hx Diabetes Mellitus Type 1, Hx Diabetes Mellitus Type 2 Renal/ Medical History: Denies: Hx Peritoneal Dialysis Musculoskeltal Medical History: Reports Hx Arthritis Psychiatric Medical History: Reports: Hx Attention Deficit Hyperactivity Disorder, Hx Depression - anxiety, Hx Schizophrenia Past Surgical History: Reports: Hx Orthopedic Surgery - back. Denies: Hx Pacemaker - Immunizations Hx Diphtheria, Pertussis, Tetanus Vaccination: Yes
[2019-04-20 22:29] LABS: ABSOLUTE EOSINOPHILS # (AUTO) 0.4 10^3/uL (0.0-0.6); ABSOLUTE MONOCYTES (AUTO) 0.9 10^3/uL (0.1-1.4); ABSOLUTE NEUT (AUTO) 8.4 10^3/uL (1.7-8.2); BASOPHILS % (AUTO) 0.2 % (0-2); EOSINOPHILS % (AUTO) 2.8 % (0-6); HEMATOCRIT 40.3 % (37.9-51.0); HEMOGLOBIN 13.8 g/dL (13.5-17.0); LYMPHOCYTES % (AUTO) 23.6 % (13-45); MEAN CORPUSCULAR HEMOGLOBIN 29.2 pg (27.0-33.4); MEAN CORPUSCULAR HGB CONC 34.3 g/dL (32.0-36.0); MEAN CORPUSCULAR VOLUME 85 fl (80-97); MONOCYTES % (AUTO) 7.5 % (3-13); PLATELET COUNT 242 10^3/uL (150-450); RED BLOOD COUNT 4.74 10^6/uL (4.35-5.55); RED CELL DISTRIBUTION WIDTH 13.9 % (11.5-14.0); SEGMENTED NEUTROPHILS % (AUTO) 65.9 % (42-78); TOTAL CELLS COUNTED % (AUTO) 100 %; WHITE BLOOD COUNT 12.7 10^3/uL (4.0-10.5)
--- NOTE | 2019-04-20 22:29 | RADIOLOGY REPORT (SQ) ---
EXAM DESCRIPTION: XR CHEST 2 VIEWS COMPLETED DATE/TME: 04/20/2019 21:46 CLINICAL HISTORY: 29 years, Male, chest tightness short of breath COMPARISON: 11/29/2018 chest NUMBER OF VIEWS: 2 TECHNIQUE: 2 views of the chest LIMITATIONS: None. FINDINGS: Heart size is normal. Lungs are clear. No pneumothorax IMPRESSION: Negative chest copyright 2010 [employer]- All Rights Reserved
[2019-04-20 22:34] LABS: INTERNATIONAL RATION (INR) 0.92; PROTHROMBIN TIME 12.3 SEC (11.4-15.4)
[2019-04-20 22:35] LABS: PARTIAL THROMBOPLASTIN TIME 27.5 SEC (23.5-35.8)
[2019-04-20 22:47] LABS: ALKALINE PHOSPHATASE 99 U/L (38-126); ANION GAP 9 (5-19); ASPARTATE AMINO TRANSFERASE 34 U/L (17-59); BILIRUBIN,DIRECT 0.1 mg/dL (0.0-0.4); BILIRUBIN,TOTAL 0.3 mg/dL (0.2-1.3); BLOOD UREA NITROGEN 20 mg/dL (7-20); CALCIUM 9.5 mg/dL (8.4-10.2); CARBON DIOXIDE 29 mmol/L (22-30); CHLORIDE 101 mmol/L (98-107); CREATINE KINASE 275 U/L (55-170); GLUCOSE 95 mg/dL (75-110); TOTAL PROTEIN 7.1 g/dL (6.3-8.2)
[2019-04-20 22:55] LABS: CREATINE KINASE MB 7.11 ng/mL (<4.55)
[2019-04-20 22:58] LABS: NT PRO BNP 66 pg/mL (<125); TROPONIN I < 0.012 ng/mL
[2019-04-21] MEDS ORDERED: ALBUTEROL SULFATE HFA (90 MCG/PUFF) 8 GM MDI (1 MDI/ER DISP) IH PRN (03:45)
--- NOTE | 2019-04-21 04:03 | ER Document Report ---
ED General - General Chief Complaint: Breathing Difficulty Stated Complaint: DIFFICULTY BREATHING Time Seen by Provider: 04/20/19 21:45 Mode of Arrival: Ambulatory TRAVEL OUTSIDE OF THE [place] IN LAST 30 DAYS: No COUNTRY TRAVELED TO/FROM: [facility] Notes: Patient is a 29-year-old male who presents the emergency department for evaluation of chest tightness and trouble breathing. He states is been going on for about a week. It seems to be worse in the evening. He has associated cough, intermittently productive. He said hot and cold sweats, particularly at night. No gene fevers to his knowledge. Some nausea but no emesis. He states he has tried some [id number]-[id number] cough and cold medicines with minimal relief. - Related Data Allergies/Adverse Reactions: methylphenidate [From Ritalin] Allergy (Verified 04/21/19 02:39) Home Medications: metoprolol 25 bid. cymbalta 60 qd. gabapentin 600 tid. burpromorphine 8 mg bid Past Medical History - General Information source: Patient - Social History Smoking Status: Current Every Day Smoker Frequency of alcohol use: Occasional Family History: Reviewed & Not Pertinent Patient has suicidal ideation: No Patient has homicidal ideation: No - Past Medical History Cardiac Medical History: Reports: Hx Hypertension Denies: Hx Coronary Artery Disease, Hx Heart Attack Pulmonary Medical History: Denies: Hx Asthma, Hx Bronchitis, Hx COPD, Hx Pneumonia Neurological Medical History: Denies: Hx Cerebrovascular Accident, Hx Seizures Endocrine Medical History: Denies: Hx Diabetes Mellitus Type 1, Hx Diabetes Mellitus Type 2 Renal/ Medical History: Denies: Hx Peritoneal Dialysis Musculoskeletal Medical History: Reports Hx Arthritis, Reports Other - Chronic back pain Psychiatric Medical History: Reports: Hx Attention Deficit Hyperactivity Disorder, Hx Depression - anxiety, Hx Schizophrenia Past Surgical History: Reports: Hx Orthopedic Surgery - back. Denies: Hx Pacemaker - Immunizations Hx Diphtheria, Pertussis, Tetanus Vaccination: Yes Review of Systems - Review of Systems Constitutional: No symptoms reported EENT: No symptoms reported Cardiovascular: See HPI Respiratory: See HPI Gastrointestinal: No symptoms reported Genitourinary: No symptoms reported Musculoskeletal: No symptoms reported Skin: No symptoms reported Neurological/Psychological: No symptoms reported Physical Exam - Vital signs Vitals: Temp Pulse Resp BP Pulse Ox 97.9 F 78 14 182/99 H 100 04/20/19 21:46 04/20/19 21:46 04/20/19 21:46 04/20/19 21:46 04/20/19 21:46 - Notes Notes: Vital signs reviewed, please refer to chart. Head is normocephalic, atraumatic. Pupils equal round, reactive to light. Neck is supple without meningismus. Heart is regular rate and rhythm. Lungs revealed diffusely harsh breath sounds but no wheezes, rales, rhonchi. Abdomen is soft, nontender, normoactive bowel sounds throughout. Extremities without cyanosis, clubbing. Posterior calves are nontender. Peripheral pulses are equal. Skin is warm and dry. Patient is awake, alert, neurological exam is nonfocal. Course - Re-evaluation Re-evalutation: 04/21/19 04:01 Patient presents emergency department for evaluation of chest tightness. His symptoms seem much more consistent with upper respiratory infection/bronchitis. The patient is told he needs to quit smoking. He voiced understanding to this. He had chest x-ray, cardiac evaluation, these were all found to be unremarkable. He was given albuterol inhaler here. I will send him home with prescription for Tessalon Perles and close follow-up. He is to return to the ED with worsening. - Vital Signs Vital signs: Temp Pulse Resp BP Pulse Ox 97.5 F 70 19 149/92 H 95 04/21/19 04:29 04/21/19 04:29 04/21/19 04:29 04/21/19 04:29 04/21/19 04:29 - Laboratory Result Diagrams: 04/20/19 22:15 04/20/19 22:15 Laboratory results interpreted by me: 04/20/19 04/20/19 04/20/19 22:15 22:15 22:15 WBC 12.7 H Absolute Neuts (auto) 8.4 H Creatine Kinase 275 H CK-MB (CK-2) 7.11 H Discharge - Discharge Clinical Impression: Acute bronchitis Qualifiers: Bronchitis organism: unspecified organism Qualified Code(s): J20.9 - Acute bronchitis, unspecified Chest pain Qualifiers: Chest pain type: unspecified Qualified Code(s): R07.9 - Chest pain, unspecified Condition: Stable Disposition: HOME, SELF-CARE Instructions: Bronchitis ([facility]), Chest Pain of Unclear Cause ([facility]) Additional Instructions: Rest, stay well-hydrated. Take medications as needed. Follow-up with primary care next week. Return to the emergency department with worsening or new concerning symptoms. Prescriptions: Benzonatate [Tessalon Perles 100 mg Capsule] 100 mg PO Q8HP PRN #40 capsule PRN Reason: Forms: Smoking Cessation Education, Return to Work
[2019-04-21 04:31] VITALS: BP 149/92
--- NOTE | 2019-04-21 08:56 | EKG REPORT ---
SEVERITY:- ABNORMAL ECG - SINUS RHYTHM CONSIDER LEFT VENTRICULAR HYPERTROPHY : Confirmed by: Cornell Frias MD 21-Apr-2019 08:56:00
== END 2019-04-21 04:31 | disposition home or self-care (01) ==
LOC: ER 21:36
DX: J20.9 Acute bronchitis, unspecified (principal); R07.89 Other chest pain; I10 Essential (primary) hypertension; R05 Cough; R61 Generalized hyperhidrosis; R11.0 Nausea; F17.200 Nicotine dependence, unspecified, uncomplicated; M54.9 Dorsalgia, unspecified; G89.29 Other chronic pain; F32.9 Major depressive disorder, single episode, unspecified; F41.9 Anxiety disorder, unspecified; Z79.899 Other long term (current) drug therapy; Z79.891 Long term (current) use of opiate analgesic; Z88.8 Allergy status to other drugs, medicaments and biological substances
CPT/HCPCS: 93005; 99285; 36415; 82553; 82550; 83735; 84443; 85025; 85610; 85730; 80053; 84484; 83880; 71046; 93010; J3490

== ENCOUNTER 2019-05-01 04:23 | Emergency (ER) | payer SELFPAY ==
[2019-05-01] MEDS ORDERED: LORAZEPAM 1 MG TABLET PO ONE (07:45)
--- NOTE | 2019-05-01 07:50 | ER Document Report ---
ED General - General Chief Complaint: Probable Seizure Stated Complaint: POSSIBLE SEIZURE Time Seen by Provider: 05/01/19 07:20 TRAVEL OUTSIDE OF THE [place] IN LAST 30 DAYS: No COUNTRY TRAVELED TO/FROM: [facility] - HPI Onset: Just prior to arrival Severity: Moderate Context: 29 year old male here with complaint of alteration of consiousness at home last week and this past evening. Woke up on ground once and on floor after urinating once and then last evening observed him with tremor/ shaking that he does not remeber this. He has no h/o seizure disorder. No recent illness. No fever. No rash. No tick bite. - Related Data Allergies/Adverse Reactions: methylphenidate [From Ritalin] Allergy (Verified 05/01/19 04:57) Home Medications: See med rec Past Medical History - Social History Smoking Status: Current Every Day Smoker Chew tobacco use (# tins/day): No Frequency of alcohol use: None Family History: Reviewed & Not Pertinent Patient has suicidal ideation: No Patient has homicidal ideation: No - Past Medical History Cardiac Medical History: Reports: Hx Hypertension Denies: Hx Coronary Artery Disease, Hx Heart Attack Pulmonary Medical History: Denies: Hx Asthma, Hx Bronchitis, Hx COPD, Hx Pneumonia Neurological Medical History: Denies: Hx Cerebrovascular Accident, Hx Seizures Endocrine Medical History: Denies: Hx Diabetes Mellitus Type 1, Hx Diabetes Mellitus Type 2 Renal/ Medical History: Denies: Hx Peritoneal Dialysis Musculoskeletal Medical History: Reports Hx Arthritis Psychiatric Medical History: Reports: Hx Attention Deficit Hyperactivity Disorder, Hx Depression - anxiety, Hx Schizophrenia Past Surgical History: Reports: Hx Orthopedic Surgery - back. Denies: Hx Pacemaker - Immunizations Hx Diphtheria, Pertussis, Tetanus Vaccination: Yes Review of Systems - Review of Systems Constitutional: No symptoms reported EENT: No symptoms reported Cardiovascular: No symptoms reported Respiratory: No symptoms reported Gastrointestinal: No symptoms reported Genitourinary: No symptoms reported Male Genitourinary: No symptoms reported Musculoskeletal: Other - right leg parathesia Skin: No symptoms reported Hematologic/Lymphatic: No symptoms reported Neurological/Psychological: See HPI, Lost consciousness, Numbness, Tremor Physical Exam - Vital signs Vitals: Temp Pulse Resp BP Pulse Ox 97.6 F 78 20 169/101 H 95 05/01/19 04:37 05/01/19 04:37 05/01/19 04:37 05/01/19 04:37 05/01/19 04:37 Interpretation: Normal - General General appearance: Appears well, Alert - HEENT Head: Normocephalic, Atraumatic Eyes: Normal Pupils: PERRL - Respiratory Respiratory status: No respiratory distress Chest status: Nontender Breath sounds: Normal Chest palpation: Normal - Cardiovascular Rhythm: Regular Heart sounds: Normal auscultation Murmur: No - Abdominal Inspection: Normal Distension: No distension Bowel sounds: Normal Tenderness: Nontender Organomegaly: No organomegaly - Back Back: Normal, Nontender - Extremities General upper extremity: Normal inspection, Nontender, Normal color, Normal ROM, Normal temperature General lower extremity: Normal inspection, Nontender, Normal color, Normal ROM, Normal temperature, Normal weight bearing. No: Bryant's sign - Neurological Neuro grossly intact: Yes Cognition: Normal Orientation: AAOx4 Erlin Coma Scale Eye Opening: Spontaneous Erlin Coma Scale Verbal: Oriented [place] Coma Scale Motor: Obeys Commands Erlin Coma Scale Total: 15 Speech: Normal Motor strength normal: LUE, RUE, LLE, RLE Sensory: Normal - Psychological Associated symptoms: Normal affect, Normal mood - Skin Skin Temperature: Warm Skin Moisture: Dry Skin Color: Normal Course - Re-evaluation Re-evalutation: 05/01/19 10:53 MDM ? seizure with no history of that. Feel he is safe for follow up. Workup here is benign. He understands no driving or other potentially dangerous activities until after follow up. - Vital Signs Vital signs: Temp Pulse Resp BP Pulse Ox 97.6 F 78 17 159/100 H 96 05/01/19 04:37 05/01/19 04:37 05/01/19 09:01 05/01/19 09:01 05/01/19 09:01 - Laboratory Result Diagrams: 05/01/19 06:40 05/01/19 06:40 Laboratory results interpreted by me: 05/01/19 06:40 Glucose 139 H Creatine Kinase 388 H Discharge - Discharge Clinical Impression: Syncope Qualifiers: Syncope type: unspecified Qualified Code(s): R55 - Syncope and collapse Condition: Good Disposition: HOME, SELF-CARE Instructions: New Seizure ([facility]) Additional Instructions: See your doctor in follow up. Rest. Return here for any problems or any concerns. Forms: Elevated Blood Pressure, Return to Work
[2019-05-01 08:52] LABS: ABSOLUTE BASOPHILS # (AUTO) 0.1 10^3/uL (0.0-0.2); ABSOLUTE EOSINOPHILS # (AUTO) 0.5 10^3/uL (0.0-0.6); ABSOLUTE LYMPHOCYTES (AUTO) 2.9 10^3/uL (0.5-4.7); ABSOLUTE MONOCYTES (AUTO) 1.1 10^3/uL (0.1-1.4); BASOPHILS % (AUTO) 1.1 % (0-2); EOSINOPHILS % (AUTO) 5.1 % (0-6); HEMATOCRIT 41.7 % (37.9-51.0); LYMPHOCYTES % (AUTO) 30.6 % (13-45); MEAN CORPUSCULAR HGB CONC 33.6 g/dL (32.0-36.0); MEAN CORPUSCULAR VOLUME 86 fl (80-97); MONOCYTES % (AUTO) 11.5 % (3-13); PLATELET COUNT 237 10^3/uL (150-450); RED BLOOD COUNT 4.84 10^6/uL (4.35-5.55); RED CELL DISTRIBUTION WIDTH 13.9 % (11.5-14.0); SEGMENTED NEUTROPHILS % (AUTO) 51.7 % (42-78); TOTAL CELLS COUNTED % (AUTO) 100 %; WHITE BLOOD COUNT 9.6 10^3/uL (4.0-10.5)
[2019-05-01 09:06] LABS: APPEARANCE,URINE CLEAR; BILIRUBIN,URINE NEGATIVE (NEGATIVE); COLOR,URINE YELLOW; GLUCOSE, URINE NEGATIVE (NEGATIVE); KETONES,URINE NEGATIVE (NEGATIVE); LEUKOCYTE ESTERASE,URINE NEGATIVE (NEGATIVE); NITRITE,URINE NEGATIVE (NEGATIVE); PROTEIN,URINE NEGATIVE (NEGATIVE); URINE SPECIFIC GRAVITY 1.021; UROBILINOGEN,URINE NEGATIVE mg/dL (<2.0)
[2019-05-01 09:10] LABS: ALKALINE PHOSPHATASE 107 U/L (38-126); ANION GAP 8 (5-19); ASPARTATE AMINO TRANSFERASE 41 U/L (17-59); BILIRUBIN,DIRECT 0.1 mg/dL (0.0-0.4); BILIRUBIN,TOTAL 0.4 mg/dL (0.2-1.3); BLOOD UREA NITROGEN 14 mg/dL (7-20); CALCIUM 9.3 mg/dL (8.4-10.2); CARBON DIOXIDE 28 mmol/L (22-30); CHLORIDE 103 mmol/L (98-107); CREATINE KINASE 388 U/L (55-170); GLUCOSE 139 mg/dL (75-110); TOTAL PROTEIN 7.2 g/dL (6.3-8.2)
[2019-05-01 09:20] LABS: URINE AMPHETAMINES SCREEN NEGATIVE; URINE BARBITURATES SCREEN NEGATIVE; URINE BENZODIAZEPINES SCREEN NEGATIVE; URINE COCAINE SCREEN NEGATIVE; URINE MARIJUANA (THC) SCREEN UNCONFIRMED POSITIVE; URINE METHADONE SCREEN NEGATIVE; URINE PHENCYCLIDINE SCREEN NEGATIVE
[2019-05-01 11:41] VITALS: BP 169/109
--- NOTE | 2019-05-01 16:19 | EKG REPORT ---
SEVERITY:- ABNORMAL ECG - SINUS RHYTHM CONSIDER LEFT VENTRICULAR HYPERTROPHY : Confirmed by: Vanessa Hill MD 01-May-2019 16:17:51
== END 2019-05-01 11:15 | disposition home or self-care (01) ==
LOC: ER 04:23
DX: R55 Syncope and collapse (principal); R20.0 Anesthesia of skin; I10 Essential (primary) hypertension; F17.200 Nicotine dependence, unspecified, uncomplicated
CPT/HCPCS: 36415; 80053; 80307; 81001; 82550; 85025; 93005; 93010; 99284

== ENCOUNTER 2019-08-28 10:56 | Emergency (ER) | payer SELFPAY ==
--- NOTE | 2019-08-28 12:03 | ER Document Report ---
HPI - HPI Patient complains to provider of: Body aches Time Seen by Provider: 08/28/19 11:53 Onset: Yesterday Onset/Duration: Sudden Quality of pain: Achy Context: This 29-year-old male presents emergency department with complaints of body aches feeling very tired. Reports he had the same symptoms last week saw his family. He was better. Here reports symptoms returned yesterday. He reports his is in labor upstairs and they sent him down here for a flu test. Denies fever vomiting diarrhea. Did not receive the flu vaccine this year. No recent trips overseas no recent exposure from one that has been overseas. Associated Symptoms: Body/muscle aches Exacerbated by: Denies Relieved by: Denies Similar symptoms previously: Yes Recently seen / treated by doctor: No - REPRODUCTIVE Reproductive: DENIES: : Past Medical History - General Information source: Patient - Social History Smoking Status: Current Every Day Smoker Cigarette use (# per day): No - Vapes Frequency of alcohol use: None Drug Abuse: None Lives with: Family Family History: Reviewed & Not Pertinent Patient has suicidal ideation: No Patient has homicidal ideation: No - Past Medical History Cardiac Medical History: Reports: Hx Hypertension Denies: Hx Coronary Artery Disease, Hx Heart Attack Pulmonary Medical History: Denies: Hx Asthma, Hx Bronchitis, Hx COPD, Hx Pneumonia Neurological Medical History: Denies: Hx Cerebrovascular Accident, Hx Seizures Endocrine Medical History: Denies: Hx Diabetes Mellitus Type 1, Hx Diabetes Mellitus Type 2 Renal/ Medical History: Denies: Hx Peritoneal Dialysis Musculoskeletal Medical History: Reports Hx Arthritis Psychiatric Medical History: Reports: Hx Attention Deficit Hyperactivity Disorder, Hx Depression - anxiety, Hx Schizophrenia Past Surgical History: Reports: Hx Orthopedic Surgery - back. Denies: Hx Pacemaker - Immunizations Hx Diphtheria, Pertussis, Tetanus Vaccination: Yes Vertical Provider Document - CONSTITUTIONAL Agree With Documented VS: Yes Exam Limitations: No Limitations General Appearance: WD/WN, No Apparent Distress - Nontoxic looking - INFECTION CONTROL TRAVEL OUTSIDE OF THE [place] IN LAST 30 DAYS: No - HEENT HEENT: Atraumatic, Normal ENT Exam, Normocephalic. negative: Conjuctival Injection, Pharyngeal Erythema, Tympanic Membrane Red, Tympanic Membrane Bulging - NECK Neck: Normal Inspection, Supple. negative: Lymphadenopathy-Left, Lymphadenopathy-Right - RESPIRATORY Respiratory: Breath Sounds Normal, No Respiratory Distress - CARDIOVASCULAR Cardiovascular: Regular Rate, Regular Rhythm - GI/ABDOMEN Gastrointestinal: Abdomen Soft, Abdomen Non-Tender - MUSCULOSKELETAL/EXTREMETIES Musculoskeletal/Extremeties: KATI ROE - NEURO Level of Consciousness: Awake, Alert, Appropriate Motor/Sensory: No Motor Deficit - DERM Integumentary: Warm, Dry, No Rash Course - Re-evaluation Re-evalutation: 08/28/19 13:32 Patient presents with body aches. Denies fever vomiting diarrhea. No recent trip overseas or exposure to anybody from overseas. Reports his is upstairs in labor and he was told to come here for flu test. Flu test is negative. Patient was instructed on pushing fluids good handwashing. He was also instructed to follow-up with his primary care provider for complete physical. He verbalized understanding to all instructions. Laboratory 08/28/19 12:04 Influenza A (Rapid) NEGATIVE Influenza B (Rapid) NEGATIVE - Vital Signs Vital signs: Temp Pulse Resp BP Pulse Ox 98.9 F 72 18 159/90 H 97 08/28/19 11:16 08/28/19 11:16 08/28/19 11:16 08/28/19 11:16 08/28/19 11:16 Discharge - Discharge Clinical Impression: Body aches Condition: Stable Disposition: HOME, SELF-CARE Instructions: Acetaminophen Additional Instructions: *You have been evaluated for body aches *Your influenza test was negative *Increase fluids, wash her hands *Monitor your temperature, take Tylenol as indicated *Follow up with a primary care provider within 1 week for recheck *Return to ED for increasing fever, cough, worsening condition, changes, needs, difficulty breathing, concerns Monitor your blood pressure. Your blood pressure was elevated today. This may be because you were anxious, in pain or because you need medication. It is important to follow up with your primary care provider for full evaluation. Forms: Elevated Blood Pressure
[2019-08-28 12:40] LABS: A TYPE INFLUENZA AG NEGATIVE (NEGATIVE); B INFLUENZA AG NEGATIVE (NEGATIVE)
[2019-08-28 13:10] VITALS: BP 149/95
== END 2019-08-28 13:09 | disposition home or self-care (01) ==
LOC: ER 10:56
DX: M79.10 Myalgia, unspecified site (principal); R53.83 Other fatigue; F17.290 Nicotine dependence, other tobacco product, uncomplicated; I10 Essential (primary) hypertension
CPT/HCPCS: 87804; 99283

== ENCOUNTER 2019-12-04 12:50 | Emergency (ER) | payer SELFPAY ==
[2019-12-04 13:29] VITALS: BP 160/92
[2019-12-04] MEDS ORDERED: HYDROCHLOROTHIAZIDE 25 MG TABLET PO ONE (14:09)
--- NOTE | 2019-12-04 14:09 | ER Document Report ---
HPI - HPI Time Seen by Provider: 12/04/19 14:01 Pain Level: 3 Notes: CHIEF COMPLAINT: Intermittent bilateral ankle swelling for months HPI: 29-year-old obese male presenting to the emergency department complaining of intermittent bilateral ankle swelling over the last several months. He feels like it is been worse over the last 2 weeks. Called his PCP today who told him to come to the emergency department. Patient denies chest pain shortness of breath. Patient does relate that he is on 3 different blood pressure medications although he is only taken 1 of them over the last 2 weeks while he has had the increased swelling in the ankles. Patient has not had a fever. He denies abdominal pain. He denies calf pain. Patient states he does work on his feet all day and notices that the ankles are most swollen when he gets home from work and after he sleeps at night and elevates his feet the swelling is much better. ROS: See HPI - all other systems were reviewed and are otherwise negative Constitutional: no fever Eyes: no drainage, no blurred vision ENT: no runny nose, no sore throat Cardiovascular: no chest pain Resp: no SOB, no cough GI: no vomiting, no diarrhea, no abdominal pain : no dysuria Integumentary: no rash Allergy: no hives Musculoskeletal: + extremity pain or swelling Neurological: no numbness/tingling, no weakness MEDICATIONS: I agree with the patient medications as charted by the RN. ALLERGIES: I agree with the allergies as charted by the RN. PAST MEDICAL HISTORY/PAST SURGICAL HISTORY: Reviewed and agree as charted by RN. SOCIAL HISTORY: Reviewed and agree as charted by RN. FAMILY HISTORY: No significant familial comorbid conditions directly related to patient complaint EXAM: Reviewed vital signs as charted by RN. CONSTITUTIONAL: Alert and oriented and responds appropriately to questions. Well-appearing; well-nourished HEAD: Normocephalic; atraumatic EYES: PERRL; Conjunctivae clear, sclerae non-icteric ENT: normal nose; no rhinorrhea; moist mucous membranes; pharynx without lesions noted, no uvula edema or deviation, no tonsillar hypertrophy, phonation normal NECK: Supple without meningismus; non-tender; no cervical lymphadenopathy, no masses CARD: RRR; no murmurs, no clicks, no rubs, no gallops; symmetric distal pulses RESP: Normal chest excursion without splinting or tachypnea; breath sounds clear and equal bilaterally; no wheezes, no rhonchi, no rales, pulse oximetry 97% on room air not hypoxic ABD/GI: Normal bowel sounds; non-distended; soft, non-tender, no rebound, no guarding; no palpable organomegaly or masses. BACK: The back appears normal and is non-tender to palpation, there is no CVA tenderness EXT: Normal ROM in all joints; non-tender to palpation; no cyanosis, no effusions, 1+ pitting edema bilateral anterior lower legs. Dorsalis pedis and posterior tibial pulses are present and equal bilateral lower extremities. There is absolutely no calf pain on palpation bilaterally. Negative Homans sign SKIN: Normal color for age and race; warm; dry; good turgor; no acute lesions noted NEURO: Moves all extremities equally; Motor and sensory function intact PSYCH: The patient's mood and manner are appropriate. Grooming and personal hygiene are appropriate. MDM: 29-year-old male presenting with bilateral dependent edema worse after he works all day on his feet. He has absolutely no calf pain today suggesting a DVT. Symptoms have been intermittent and ongoing for several months but worse in the last 2 weeks since he stopped 2 of his blood pressure medications. He is mildly hypertensive here today. I discussed this at length with him. There is no indication for a Doppler study today. We will place the patient on hydrochlorothiazide in the morning, recommend compression stockings and follow- up with PCP. Patient is in agreement with this plan - CONSTITUTIONAL Constitutional: DENIES: Fever, Chills - REPRODUCTIVE Reproductive: DENIES: : Past Medical History - Social History Smoking Status: Unknown if Ever Smoked Family History: Reviewed & Not Pertinent Patient has homicidal ideation: No - Past Medical History Cardiac Medical History: Reports: Hx Hypertension Denies: Hx Coronary Artery Disease, Hx Heart Attack Pulmonary Medical History: Denies: Hx Asthma, Hx Bronchitis, Hx COPD, Hx Pneumonia Neurological Medical History: Denies: Hx Cerebrovascular Accident, Hx Seizures Endocrine Medical History: Denies: Hx Diabetes Mellitus Type 1, Hx Diabetes Mellitus Type 2 Renal/ Medical History: Denies: Hx Peritoneal Dialysis Musculoskeletal Medical History: Reports Hx Arthritis Psychiatric Medical History: Reports: Hx Attention Deficit Hyperactivity Disorder, Hx Depression - anxiety, Hx Schizophrenia Past Surgical History: Reports: Hx Orthopedic Surgery - back. Denies: Hx Pacemaker - Immunizations Hx Diphtheria, Pertussis, Tetanus Vaccination: Yes Vertical Provider Document - INFECTION CONTROL TRAVEL OUTSIDE OF THE [place] IN LAST 30 DAYS: No Course - Vital Signs Vital signs: Temp Pulse Resp BP Pulse Ox 98.6 F 95 20 160/92 H 96 12/04/19 14:02 12/04/19 13:27 12/04/19 13:27 12/04/19 13:27 12/04/19 13:27 Discharge - Discharge Clinical Impression: Dependent edema HTN (hypertension) Qualifiers: Hypertension type: essential hypertension Qualified Code(s): I10 - Essential (primary) hypertension Condition: Stable Disposition: HOME, SELF-CARE Instructions: Dependent Edema ([facility]) Additional Instructions: Take the hydrochlorothiazide daily as discussed. Use compression stockings to help with the excess fluid in the legs during the day. Take them off at night. Follow-up with your primary care provider regarding your blood pressures, your pressure today was mildly elevated. The hydrochlorothiazide will help remove some of the excess fluid but also help with your blood pressure see if your PCP wants to take you off 1 of your other medications and substitute this. Prescriptions: Hydrochlorothiazide [Hydrodiuril 25 mg Tablet] 25 mg PO QAM #30 tablet Referrals: CANDIDA QUIROGA MD [Primary Care Provider] - Follow up as needed
== END 2019-12-04 14:20 | disposition home or self-care (01) ==
LOC: ER 12:50
DX: R60.0 Localized edema (principal); I10 Essential (primary) hypertension; Z79.899 Other long term (current) drug therapy
CPT/HCPCS: 99283